=== PATIENT | male | born 1990 | race Caucasian/White ===

== ENCOUNTER 2018-05-29 02:55 | Day surgery (SDC) | payer OTHER ==
[~2018-05-29 02:55] MED LIST: BUPIVACAINE HCL/PF (5 MG/ML) 30 ML VIAL IJ ONE
[2018-05-29 03:17] VITALS: BMI 31.7
[2018-05-29] MEDS ORDERED: SODIUM CHLORIDE 500 ML IV STA (03:24)
[2018-05-29] MEDS ORDERED: ONDANSETRON 4 MG/2 ML VIAL IVPUSH ONE (03:24)
[2018-05-29] MEDS ORDERED: FAMOTIDINE 20 MG/50 ML IVPB 20 MG/50 ML MG IVPB ONE ×2 (03:25→03:38)
[2018-05-29] MEDS ORDERED: MAG HYDROX/AL HYDROX/SIMETH 30 ML UNIT-DOSE CUP PO ONE (03:25)
[2018-05-29] MEDS ORDERED: LIDOCAINE VISCOUS 2% ORAL/TOP 20 ML UNIT-DOSE CUP PO ONE (03:25)
--- NOTE | 2018-05-29 03:28 | PDOC ---
History of Present Illness - General Chief Complaint: Pain, Acute Stated Complaint: ABD PAIN Time Seen by Provider: 05/29/18 03:21 History Source: Patient Exam Limitations: No Limitations - History of Present Illness Travel History: No Initial Comments: 05/29/18 03:26 HISTORY OF PRESENT ILLNESS: 27-year-old male denies medical history presents emergency department for evaluation of diffuse abdominal pain starting approximately 3 hours ago. Patient states without risk friends for dinner and was eating pork and [place] food. Patient states proximal to 5 hours after finishing his dinner he began to have some abdominal pain and began vomiting. Patient describes his abdominal pain is a crampy feeling which she reports is throughout his entire abdomen. He denies any chest pain, shortness of breath, dysuria, hematuria or rectal bleeding. His last bowel movement was approximately noon on 05/28. No recent travel or sick contacts. PAST MEDICAL HISTORY: Denies past medical history SURGICAL HISTORY: Denies ALLERGIES: No known drug allergies REVIEW OF SYSTEMS General/Constitutional: Denies fever or chills. Denies weakness, weight change. HEENT: Denies change in vision. Denies ear pain or discharge. Denies sore throat. Cardiovascular: Denies chest pain or shortness of breath. Respiratory: Denies cough, wheezing, or hemoptysis. Gastrointestinal: see hpi Genitourinary: Denies dysuria, frequency, or change in urination. Musculoskeletal: Denies joint or muscle swelling or pain. Denies neck or back pain. Skin and breasts: Denies rash or easy bruising. Neurologic: Denies headache, vertigo, loss of consciousness, or loss of sensation. Psychiatric: Denies depression or anxiety. Endocrine: Denies increased thirst. Denies abnormal weight change. Hematologic/Lymphatic: Denies anemia, easy bleeding, or history of blood clots. Allergic/Immunologic: Denies hives or skin allergy. Denies latex allergy. PHYSICAL EXAM General Appearance: Well-appearing, appropriately dressed. No apparent distress , no intoxication. HEENT: EOMI, PERRLA, normal ENT inspection, normal voice, TMs normal, pharynx normal. No conjunctival pallor. No photophobia, scleral icterus. Neck: Supple. Trachea midline. No tenderness, rigidity, carotid bruit, stridor , lymphadenopathy, or thyromegaly. Respiratory/Chest: Lungs CTAB. No shortness of breath, chest tenderness, respiratory distress, accessory muscle use. No crackles, rales, rhonchi, stridor , wheezing, dullness Cardiovascular: RRR. S1, S2. No JVD, murmur, bradycardia, tachycardia. Vascular Pulses: Dorsalis-Pedis (R): 2+, Dorsalis-Pedis (L): 2+ Gastrointestinal/Abdominal: Normal bowel sounds. Abdomen soft, non-distended. No tenderness or rebound tenderness. No organomegaly, pulsatile mass, guarding, hernia, hepatomegaly, splenomegaly. Lymphatic: No adenopathy, tenderness. Musculoskeletal/Extremities: Normal inspection. FROM of all extremities, normal capillary refill. Pelvis Stable. No CVA tenderness. No tenderness to extremities, pedal edema, swelling, erythema or deformity. Integumentary: Appropriate color, dry, warm. No cyanosis, erythema, jaundice or rash Neurologic: industrial engineer II-XII intact. Fully oriented, alert. Appropriate mood/affect. Motor strength 5/5. No appreciable EOM palsy, facial droop or sensory deficit. Past History - Past Medical History Allergies/Adverse Reactions: Allergies Allergy/AdvReac Type Severity Reaction Status Date / Time No Known Allergies Allergy Verified 05/29/18 03:20 Home Medications: Ambulatory Orders Ibuprofen 400 mg PO TID 7 Days #21 tablet 05/30/18 COPD: No - Immunization History Immunization Up to Date: Yes - Suicide/Smoking/Psychosocial Hx Smoking History: Current every day smoker Have you smoked in the past 12 months: Yes Information on smoking cessation initiated: Yes Hx Alcohol Use: Yes Drug/Substance Use Hx: No *Physical Exam - Vital Signs Last Vital Signs Temp Pulse Resp BP Pulse Ox 97.7 F 62 18 146/68 98 05/29/18 03:14 05/29/18 03:14 05/29/18 03:14 05/29/18 03:14 05/29/18 03:14 Moderate Sedation - Procedure Monitoring Vital Signs: Procedure Monitoring Vital Signs Temperature 97.7 F 05/29/18 03:14 Pulse Rate 62 05/29/18 03:14 Respiratory Rate 18 05/29/18 03:14 Blood Pressure 146/68 05/29/18 03:14 O2 Sat by Pulse Oximetry (%) 98 05/29/18 03:14 ED Treatment Course - LABORATORY CBC & Chemistry Diagram: 05/30/18 06:45 02/12/19 06:45 Medical Decision Making - Medical Decision Making 05/29/18 03:27 A/P: 27-year-old male abdominal pain for 3 hours Abdominal exam is benign Last PO ~1900hrs 10 Labs, EKG, urinalysis Maalox, viscous lidocaine, Pepcid, normal saline 1 L bolus This patient has benign abdominal exam and will defer imaging at this time. Low threshold image pending laboratory results. Patient is likely to be discharge. 05/29/18 05:15 EKG is reviewed by me and interpreted by Dr. Cintron: This bradycardia with rate of 50. Normal intervals noted. J point elevations present in V2 and V3. CT scan is read by imaging time motion analyst: 1 cm diameter fluid filled appendix with minimal adjacent fat stranding, compatible with acute appendicitis. Multiple appendicoliths including a 1.5 cm stone in the proximal appendix. No abscess, free fluid or free air. Unremarkable pancreas, kidneys and gallbladder. Case discussed with Dr. Guidry. Patient to remain nothing by mouth, IV fluids, blood cultures, antibiotics, admit. Hospitalist contacted for admission. 05/29/18 05:[address] Patel who accepts patient for [facility] admission under Dr. Cornelius. *DC/Admit/Observation/Transfer Diagnosis at time of Disposition: Appendicitis - Discharge Dispostion Disposition: HOME Condition at time of disposition: Stable Decision to Admit order: Yes - Prescriptions - Referrals - Patient Instructions - Post Discharge Activity
[2018-05-29] MEDS ORDERED: LIDOCAINE VISCOUS 2% ORAL/TOP 20 ML UNIT-DOSE CUP ONE (03:37)
[2018-05-29] MEDS ORDERED: MAG HYDROX/AL HYDROX/SIMETH 30 ML UNIT-DOSE CUP ONE (03:38)
[2018-05-29] MEDS ORDERED: ONDANSETRON 4 MG/2 ML VIAL ONE (03:38)
[2018-05-29 03:49] LABS: BASO % 0.3 % (0-2.0); EOS % 0.1 % (0-4.5); HEMATOCRIT 42.3 % (35.4-49); HEMOGLOBIN 14.6 GM/dL (11.7-16.9); LYMPH % 12.4 % (8-40); MCH 30.8 pg (25.7-33.7); MCHC 34.6 g/dl (32.0-35.9); MEAN CELL VOLUME 89.2 fl (80-96); MONO % 2.9 % (3.8-10.2); NEUT % 84.3 % (42.8-82.8); PLATELET COUNT 275 K/MM3 (134-434); RBC 4.74 M/mm3 (4.00-5.60); RDW 13.1 % (11.9-15.9); WHITE BLOOD COUNT 15.2 K/mm3 (4.0-10.0)
[2018-05-29 04:08] LABS: ALBUMIN 4.3 g/dl (3.4-5.0); ALK PHOS 88 U/L (45-117); ANION GAP 7 MMOL/L (8-16); BILIRUBIN,TOTAL 0.6 mg/dL (0.2-1); BLOOD UREA NITROGEN 22 mg/dL (7-18); CALCIUM 8.9 mg/dL (8.5-10.1); CHLORIDE 104 mmol/L (98-107); CO2 28 mmol/L (21-32); CREATININE 1.1 mg/dL (0.55-1.3); GLUCOSE,RANDOM 121 mg/dL (74-106); LIPASE 167 U/L (73-393); POTASSIUM 4.2 mmol/L (3.5-5.1); SGOT/AST 44 U/L (15-37); SGPT/ALT 35 U/L (13-61); SODIUM 139 mmol/L (136-145); TOT PROT 7.4 g/dl (6.4-8.2)
[2018-05-29] MEDS ORDERED: morphine CARPU-JECT 4 MG/1 ML DISP.SYRIN IVPUSH ONE ×2 (04:14→05:31)
[2018-05-29] MEDS ORDERED: morphine SULFATE 4 MG/ML VIAL ONE ×2 (04:17→05:33)
[2018-05-29] MEDS ORDERED: CEFTRIAXONE 1,000 MG in DEXTROSE 5%-WATER - 50 ML IVPB ONE (05:12)
[2018-05-29] MEDS ORDERED: CEFTRIAXONE 1 GM/50 ML BAG ONE (05:16)
[2018-05-29] MEDS ORDERED: SODIUM CHLORIDE 1,000 ML IV SCH (05:30)
[2018-05-29 05:35] LABS: URINE APPEARANCE CLEAR; URINE BILIRUBIN NEGATIVE (<2.0 mg/dL); URINE COLOR COLORLESS; URINE GLUCOSE (UA) NEGATIVE (NEGATIVE); URINE KETONE 1+ (NEGATIVE); URINE LEUK ESTERASE NEGATIVE (NEGATIVE); URINE NITRITE NEGATIVE (NEGATIVE); URINE PROTEIN NEGATIVE (NEGATIVE); URINE UROBILINOGEN NEGATIVE mg/dL (0.2-1.0)
--- NOTE | 2018-05-29 06:38 | PN ---
Teaching Attending Note Name of Resident: Jenn Nathan ATTENDING PHYSICIAN STATEMENT I saw and evaluated the patient. I reviewed the resident's note and discussed the case with the resident. I agree with the resident's findings and plan as documented. SUBJECTIVE: Seen and examined; please see resident note for further historical details. Briefly, this is a 27 y/o male with no PMH on no chronic Rx meds presenting with abdominal pain on the right side not made better or worse with everything, constant with fluctuating intensity, started this monring and worsened when he went out with his friends so he came to ER. Had similar pain 1 month ago but was not seen. Found to have acute appendicitis on prelim CT read. ER made surgery aware; bringing to the medicine team on med surg with surgical consultation. Appreciate expert opinion. 10 sys ROS done and negative aside from HPI PMH, PSH, Social Hx, Family Hx reviewed OBJECTIVE: VS, labs, imaging reviewed NAD, AAO, resting in bed Tender on R-side, negative rovsing's, non-distended, +BS RRR s1/2 no mgr Lungs CTAB w/ sym exp CN2-12 wnl, no fnd Normal mood, appropriate behavior ASSESSMENT AND PLAN: Patient presents with acute uncomplicated appendicitis 1) Acute Appendicitis -Consulting general sgy, defer ultimate management to their service -NPO, IVF, pain control -Levaquin and Flagyl, followup cxs FENA -LR@100 -PRN replete -NPO -As tolerated Full Code
[2018-05-29] MEDS ORDERED: LACTATED RINGERS SOLUTION 1,000 ML/1,000 ML INFUS.BAG IV SCH (07:00)
--- NOTE | 2018-05-29 07:03 | HP ---
<Jenn Nathan - Last Filed: 05/29/18 07:18> CHIEF COMPLAINT: abdominal pain x 1 day PCP: HISTORY OF PRESENT ILLNESS: 27 y/o M w/no significant PMH who presents to the ED c/o abdominal pain over the past day. States that yesterday AM, he developed generalized abdominal pain , which worsened in the evening after he went out with friends to eat [place] food. Soon after, he developed abdominal discomfort, a/w cramping as well as nausea and multiple episodes of NBNB emesis. States that sx were worsened with movement. Without alleviating fx. Denies MABRY, fever, chills, SOB, chest pain or pressure, or changes in urinary or bowel function. Of note, pt experienced similar abdominal pain a month prior, however did not seek evaluation. ER course was notable for: (1) viscous lidocaine (2) flagyl, rocephin (3) mylanta, pepcid, IVF Recent Travel: denies PAST MEDICAL HISTORY: none PAST SURGICAL HISTORY: denies Social History: Smoking: denies Alcohol: socially Drugs: denies Family History: mother passed last yr from colon [place] Allergies No Known Allergies Allergy (Verified 05/29/18 03:20) HOME MEDICATIONS: Home Medications Medication Instructions Recorded NK [No Known Home Medication] 05/29/18 confirmed with patient REVIEW OF SYSTEMS CONSTITUTIONAL: Absent: fever, chills, diaphoresis, generalized weakness, malaise, loss of appetite, weight change HEENT: Absent: rhinorrhea, nasal congestion, throat pain, throat swelling, difficulty swallowing, mouth swelling, ear pain, eye pain, visual changes CARDIOVASCULAR: Absent: chest pain, syncope, palpitations, irregular heart rate, lightheadedness , peripheral edema RESPIRATORY: Absent: cough, shortness of breath, dyspnea with exertion, orthopnea, wheezing, stridor, hemoptysis GASTROINTESTINAL: +abdominal pain, nausea, vomiting Absent: abdominal pain, abdominal distension, nausea, vomiting, diarrhea, constipation, melena, hematochezia GENITOURINARY: Absent: dysuria, frequency, urgency, hesitancy, hematuria, flank pain, genital pain MUSCULOSKELETAL: Absent: myalgia, arthralgia, joint swelling, back pain, neck pain SKIN: Absent: rash, itching, pallor HEMATOLOGIC/IMMUNOLOGIC: Absent: easy bleeding, easy bruising, lymphadenopathy, frequent infections ENDOCRINE: Absent: unexplained weight gain, unexplained weight loss, heat intolerance, cold intolerance NEUROLOGIC: Absent: headache, focal weakness or paresthesias, dizziness, unsteady gait, seizure, mental status changes, bladder or bowel incontinence PSYCHIATRIC: Absent: anxiety, depression, suicidal or homicidal ideation, hallucinations. PHYSICAL EXAMINATION Vital Signs 05/29/18 05/29/18 03:14 05:44 Temperature 97.7 F Pulse Rate 62 Pulse Rate [ 88 Left] Respiratory 18 18 Rate Blood Pressure 146/68 Blood Pressure 131/80 [Left Arm] O2 Sat by Pulse 98 Oximetry (%) GENERAL: Awake, alert, and fully oriented, in no acute distress. Lying down. HEAD: Normal with no signs of trauma. EYES: Pupils equal, round and reactive to light, extraocular movements intact, sclera anicteric, conjunctiva clear. EARS, NOSE, THROAT: Ears normal, nares patent, oropharynx clear without exudates. Dry mucous membranes. NECK: Normal range of motion, supple LUNGS: Breath sounds equal, clear to auscultation bilaterally. No wheezes, and no crackles. No accessory muscle use. HEART: Regular rate and rhythm, normal S1 and S2 without murmur, rub or gallop. ABDOMEN: Soft, +TTP RLQ. Rovsing sign (-). no rebound tenderness. non distended LOWER EXTREMITIES: 2+ pt pulses, warm, well-perfused. No calf tenderness. No peripheral edema. NEUROLOGICAL: Cranial nerves II-XII intact. 5/5 motor strength in UE, LE. PSYCHIATRIC: Cooperative. Good eye contact. SKIN: Warm, dry, normal turgor Laboratory Results 05/29/18 05/29/18 05/29/18 03:34 03:34 05:24 WBC 15.2 H RBC 4.74 Hgb 14.6 Hct 42.3 MCV 89.2 MCH 30.8 MCHC 34.6 RDW 13.1 Plt Count 275 MPV 8.0 Absolute Neuts (auto) 12.8 H Neutrophils % 84.3 H Lymphocytes % 12.4 Monocytes % 2.9 L Eosinophils % 0.1 Basophils % 0.3 Nucleated RBC % 0 Sodium 139 Potassium 4.2 Chloride 104 Carbon Dioxide 28 Anion Gap 7 L BUN 22 H Creatinine 1.1 Creat Clearance w eGFR > 60 Random Glucose 121 H Calcium 8.9 Total Bilirubin 0.6 AST 44 H ALT 35 Alkaline Phosphatase 88 Total Protein 7.4 Albumin 4.3 Lipase 167 Urine Color Colorless Urine Appearance Clear Urine pH 6.0 Ur Specific [place] > 1.060 H Urine Protein Negative Urine Glucose (UA) Negative Urine Ketones 1+ H Urine Blood Negative Urine Nitrite Negative Urine Bilirubin Negative Urine Urobilinogen Negative Ur Leukocyte Esterase Negative Blood Type Antibody Screen CTAP prelim: 1cm diameter fluid filled appendix with minimal adjacent fat stranding consistent with acute appendicitis. multiple appendicoliths including a 1.5cm stone in the proximal appendix. no abscess, free fluid, or air. unremarkable pancreas, kidneys and gallbladder. EKG: +sinus inge HR 50bpm, j point elevations in V2 and V3. Qtc ~390's as per ED staff ASSESSMENT/PLAN: 27 y/o M w/no significant PMH who presents to the ED c/o abdominal pain over the past day. #Acute appendicitis -for OR today, surgery contacted by ED staff (Dr. Guidry) -NPO -T+S, PT/PTT -morphine PRN pain control -c/w levaquin 750mg IVPB qd, flagyl 500mg IVPB qd . Qtc confirmed with ED staff -f/u blood, ucx -IVF #F/E/N IV LR 100 cc/hr continue to follow lytes NPO #PPX SCD's as to OR today #Dispo admit to med-surg Visit type - Emergency Visit Emergency Visit: Yes ED Registration Date: 05/29/18 Care time: The patient presented to the Emergency Department on the above date and was hospitalized for further evaluation of their emergent condition. - New Patient This patient is new to me today: Yes Date on this admission: 05/29/18 - Critical Care Critical Care patient: No <Andrew Cornelius - Last Filed: 06/26/18 20:52> Seen and examined; agree with the above aside from what is supplemented by myself in my own documentation. Reviewed all weber parts of history and exam with resident team and verified independently.
[2018-05-29] MEDS ORDERED: MORPHINE SULFATE 2 MG/ML VIAL ONE (07:40)
[2018-05-29] MEDS ORDERED: MIDAZOLAM HCL 2 MG/2 ML SINGLE DOSE VIAL ONE ×2 (07:48→13:19)
[2018-05-29] MEDS ORDERED: SUCCINYLCHOLINE CHLORIDE 200 MG/10 ML VIAL ONE (07:48)
[2018-05-29] MEDS ORDERED: PROPOFOL 20 ML ONE ×4 (07:48→13:21)
[2018-05-29] MEDS ORDERED: ROCURONIUM BROMIDE 50 MG/5 ML VIAL ONE (07:49)
[2018-05-29] MEDS ORDERED: MORPHINE SULFATE 2 MG/ML VIAL IVPUSH PRN ×2 (08:00→18:14)
[2018-05-29] MEDS ORDERED: BUPIVACAINE HCL/PF 0.5% (5MG/ML) 10 ML VIAL ONE (08:20)
--- NOTE | 2018-05-29 08:53 | CONSULT ---
- Consultation REQUESTING PROVIDER: Rc SAUNDERS CONSULT REQUEST: We have been asked to surgically evaluate this patient for abdominal pain PCP:Liza Porter HISTORY OF PRESENT ILLNESS: 27 y/o o/w healthy male presented w/> 6 hours of generalized to RLQ abdominal pain; sharp in nature w/o radiation; no other GI/ c/o; worse w/movement andsharp in quality; NOC. He came to the ER for evaluation. PMHx: none PSHx: none Home Medications Medication Instructions Recorded NK [No Known Home Medication] 05/29/18 Allergies Allergy/AdvReac Type Severity Reaction Status Date / Time No Known Allergies Allergy Verified 05/29/18 03:20 REVIEW OF SYSTEMS: CONSTITUTIONAL: Absent: fever, chills, diaphoresis, generalized weakness, malaise, loss of appetite, weight change CARDIOVASCULAR: Absent: chest pain, syncope, palpitations, irregular heart rate, lightheadedness , peripheral edema RESPIRATORY: Absent: cough, shortness of breath, dyspnea with exertion, wheezing, stridor, hemoptysis GASTROINTESTINAL: Absent: abdominal pain, abdominal distension, nausea, vomiting, diarrhea, constipation, melena, hematochezia GENITOURINARY: Absent: dysuria, frequency, urgency, hesitancy, hematuria, flank pain, genital pain MUSCULOSKELETAL: Absent: myalgia, arthralgia, joint swelling, back pain, neck pain SKIN: Absent: rash, itching, pallor HEMATOLOGIC/IMMUNOLOGIC: Absent: easy bleeding, easy bruising, lymphadenopathy NEUROLOGIC: Absent: headache, focal weakness, paresthesias, dizziness, unsteady gait, seizure, mental status changes, bladder or bowel incontinence PSYCHIATRIC: Absent: anxiety, depression, suicidal or homicidal ideation, hallucinations. PHYSICAL EXAM: GENERAL: Awake, alert, and fully oriented, in no acute distress. HEAD: Normal with no signs of trauma. EYES: PERRL, sclera anicteric, conjunctiva clear. NECK: Normal ROM, supple without lymphadenopathy, JVD, or masses. ABDOMEN: Soft, tender RLQ, not distended, normoactive bowel sounds,voluntary guarding, positive rebound, no masses. No organomegaly.No hernias; Rovsing/ psoas and obturator signs are present. MUSCULOSKELETAL: Normal ROM at all joints. No bony deformities or tenderness. No CVA tenderness. UPPER EXTREMITIES: 2+ pulses, warm, well-perfused. No cyanosis. Cap refill <2 seconds. No peripheral edema. LOWER EXTREMITIES: 2+ pulses, warm, well-perfused. No calf tenderness. No peripheral edema. NEUROLOGICAL: Normal speech, gait not observed. PSYCH: Cooperative. Good eye contact. Appropriate mood and affect. SKIN: Warm, dry, normal turgor, no rashes or lesions noted. Vital Signs Temperature 98.7 F 05/29/18 08:00 Pulse Rate 53 L 05/29/18 08:00 Respiratory Rate 18 05/29/18 08:00 Blood Pressure 146/76 05/29/18 08:00 O2 Sat by Pulse Oximetry (%) 98 05/29/18 08:00 Lab Results WBC 15.2 K/mm3 (4.0-10.0) H 05/29/18 03:34 RBC 4.74 M/mm3 (4.00-5.60) 05/29/18 03:34 Hgb 14.6 GM/dL (11.7-16.9) 05/29/18 03:34 Hct 42.3 % (35.4-49) 05/29/18 03:34 MCV 89.2 fl (80-96) 05/29/18 03:34 MCHC 34.6 g/dl (32.0-35.9) 05/29/18 03:34 RDW 13.1 % (11.9-15.9) 05/29/18 03:34 Plt Count 275 K/MM3 (134-434) 05/29/18 03:34 Sodium 139 mmol/L (136-145) 05/29/18 03:34 Potassium 4.2 mmol/L (3.5-5.1) 05/29/18 03:34 Chloride 104 mmol/L (98-107) 05/29/18 03:34 Carbon Dioxide 28 mmol/L (21-32) 05/29/18 03:34 Anion Gap 7 MMOL/L (8-16) L 05/29/18 03:34 BUN 22 mg/dL (7-18) H 05/29/18 03:34 Creatinine 1.1 mg/dL (0.55-1.3) 05/29/18 03:34 Random Glucose 121 mg/dL (74-106) H 05/29/18 03:34 Calcium 8.9 mg/dL (8.5-10.1) 05/29/18 03:34 Blood Type O POSITIVE 05/29/18 05:30 Antibody Screen Negative 05/29/18 05:30 CT a/p c/w acute appendicitis IMP: acute appendicitis PLAN: lap appendectomy possible open; r/b/t/a's d/w the patient and informed consent obtained. Jose Luis Guidry MD FACS
[2018-05-29] MEDS ORDERED: DESFLURANE GAS 240 ML BOTTLE IH ONE (09:27)
[2018-05-29] MEDS ORDERED: ONDANSETRON 4 MG/2 ML VIAL IVPUSH PRN ×2 (09:32→18:14)
[2018-05-29] MEDS ORDERED: BUPIVACAINE HCL/PF (5 MG/ML) 30 ML VIAL IJ ONE (10:15)
--- NOTE | 2018-05-29 10:25 | OP ---
Operative Note - Note: Operative Date: 05/29/18 Pre-Operative Diagnosis: acute appendicitis Operation: laparoscopic appendectomy Findings: acute appendicitis Post-Operative Diagnosis: Same as Pre-op Surgeon: Jose Luis Guidry Chief Airline Radio Operator: Nanci Dockery Anesthesiologist/SUPERINTENDENT INSTITUTION: [facility] Anesthesia: General Specimens Removed: appendix Estimated Blood Loss (mls): 15
[2018-05-29] MEDS ORDERED: oxyCODONE HCL 5 MG TABLET PO PRN ×2 (10:32)
[2018-05-29] MEDS ORDERED: ACETAMINOPHEN 325 MG TABLET (FP) PO PRN (10:33)
--- NOTE | 2018-05-29 12:39 | SURG ---
Surgery Configurator Note Configurator: Nanci Dockery PA-C Date of Service: 05/29/18 Diagnosis: acute appendicitis Procedure: laparoscopic appendectomy I was present for the entirety of the operative procedure. For further detail, please refer to operative report. Visit type - Case Type Case Type: ED Admission - Emergency Emergency Visit: Yes ED Registration Date: 05/29/18 Care time: The patient presented to the Emergency Department on the above date and was hospitalized for further evaluation of their emergent condition. - New patient This patient is new to me today: Yes Date on this admission: 05/29/18
--- NOTE | 2018-05-29 14:38 | EKG ---
Test Reason : Blood Pressure : / mmHG Vent. Rate : 048 BPM Atrial Rate : 048 BPM P-R Int : 132 ms QRS Dur : 084 ms QT Int : 456 ms P-R-T Axes : 008 037 023 degrees QTc Int : 407 ms SINUS BRADYCARDIA MINIMAL VOLTAGE CRITERIA FOR LVH, MAY BE NORMAL VARIANT EARLY REPOLARIZATION BORDERLINE ECG NO PREVIOUS ECGS AVAILABLE Confirmed by AVINASH NUNO, CARLOZ ([id number]) on 05/29/2018 2:38:16 PM Referred By: Confirmed By:CARLOZ DA SILVA MD
--- NOTE | 2018-05-29 15:31 | PN ---
Physical Exam: SUBJECTIVE: Patient seen and examined at bed side this AM pt presented with one day h/o abdominal pain med epigastric 9/10 continuos not improving with pain meds was found to have acute appendicitis on CT abdomen for OR today by Dr Guidry received ABx in ED Zofran for Nausea and IV fluids OBJECTIVE: Vital Signs Period Temp Pulse Resp BP Sys/Bishop Pulse Ox Last 24 Hr 97.7 F-98.7 F 53-88 16-18 120-164/62-80 94-100 GENERAL: AAOx3 in AND laying on right side HEAD: NC/AT NECK: Normal range of motion, supple LUNGS: Breath sounds equal, clear to auscultation bilaterally. No wheezes, and no crackles. No accessory muscle use. HEART: Regular rate and rhythm, normal S1 and S2 without murmur, rub or gallop. ABDOMEN: Soft, +TTP RLQ. Rovsing sign (-). no rebound tenderness. non distended LOWER EXTREMITIES: 2+ pt pulses, warm, well-perfused. No calf tenderness. No peripheral edema. NEUROLOGICAL: Cranial nerves II-XII intact. 5/5 motor strength in UE, LE. PSYCHIATRIC: Cooperative. Good eye contact. SKIN: Warm, dry, normal turgor Laboratory Results - last 24 hr 05/29/18 05/29/18 05/29/18 03:34 03:34 05:24 WBC 15.2 H RBC 4.74 Hgb 14.6 Hct 42.3 MCV 89.2 MCH 30.8 MCHC 34.6 RDW 13.1 Plt Count 275 MPV 8.0 Absolute Neuts (auto) 12.8 H Neutrophils % 84.3 H Lymphocytes % 12.4 Monocytes % 2.9 L Eosinophils % 0.1 Basophils % 0.3 Nucleated RBC % 0 Sodium 139 Potassium 4.2 Chloride 104 Carbon Dioxide 28 Anion Gap 7 L BUN 22 H Creatinine 1.1 Creat Clearance w eGFR > 60 Random Glucose 121 H Calcium 8.9 Total Bilirubin 0.6 AST 44 H ALT 35 Alkaline Phosphatase 88 Total Protein 7.4 Albumin 4.3 Lipase 167 Urine Color Colorless Urine Appearance Clear Urine pH 6.0 Ur Specific [place] > 1.060 H Urine Protein Negative Urine Glucose (UA) Negative Urine Ketones 1+ H Urine Blood Negative Urine Nitrite Negative Urine Bilirubin Negative Urine Urobilinogen Negative Ur Leukocyte Esterase Negative Blood Type Antibody Screen 05/29/18 05:30 WBC RBC Hgb Hct MCV MCH MCHC RDW Plt Count MPV Absolute Neuts (auto) Neutrophils % Lymphocytes % Monocytes % Eosinophils % Basophils % Nucleated RBC % Sodium Potassium Chloride Carbon Dioxide Anion Gap BUN Creatinine Creat Clearance w eGFR Random Glucose Calcium Total Bilirubin AST ALT Alkaline Phosphatase Total Protein Albumin Lipase Urine Color Urine Appearance Urine pH Ur Specific [place] Urine Protein Urine Glucose (UA) Urine Ketones Urine Blood Urine Nitrite Urine Bilirubin Urine Urobilinogen Ur Leukocyte Esterase Blood Type O POSITIVE Antibody Screen Negative Active Medications Generic Name Dose Route Start Last Admin Trade Name Freq PRN Reason Stop Dose Admin Acetaminophen 650 mg 05/29/18 10:33 Tylenol - PO Q6H PRN PAIN OR FEVER Fentanyl 50 mcg 05/29/18 09:32 Sublimaze Injection - IVPUSH [id number] PRN PAIN-PACU ORDER X 4 DOSES ONLY Metronidazole 500 mg in 100 mls @ 100 mls/hr 05/29/18 13:00 Flagyl 500mg Premixed Ivpb - IVPB Q8H-IV ZEENAT Levofloxacin 750 mg in 150 mls @ 100 mls/hr 05/30/18 10:00 Levaquin 750 Mg Premixed Ivpb - IVPB DAILY ZEENAT Protocol Lactated Ringer's 1,000 ml in 1,000 mls @ 100 mls/hr 05/29/18 07:00 05/29/18 07:59 Lactated Ringers Solution IV 100 mls/hr ASDIR ZEENAT Administration Morphine Sulfate 2 mg 05/29/18 08:00 05/29/18 08:00 Morphine Sulfate IVPUSH 2 mg Q6H PRN Administration PAIN LEVEL 7 - 10 Ondansetron HCl 4 mg 05/29/18 09:32 Zofran Injection IVPUSH Q6H PRN NAUSEA AND/OR VOMITING Oxycodone HCl 5 mg 05/29/18 10:32 Roxicodone - PO Q6H PRN PAIN LEVEL 1-5 Oxycodone HCl 10 mg 05/29/18 10:32 Roxicodone - PO Q6H PRN PAIN LEVEL 6-10 CBC, BMP 05/29/18 03:34 05/29/18 03:34 CTAP prelim: 1cm diameter fluid filled appendix with minimal adjacent fat stranding consistent with acute appendicitis. multiple appendicoliths including a 1.5cm stone in the proximal appendix. no abscess, free fluid, or air. unremarkable pancreas, kidneys and gallbladder. EKG: +sinus inge HR 50bpm, j point elevations in V2 and V3. Qtc ~390's as per ED staff ASSESSMENT/PLAN: 27 y/o M w/no significant PMH who presents to the ED c/o abdominal pain over the past day. #Acute appendicitis * for OR today, surgery contacted by ED staff (Dr. Guidry) * NPO * T+S, PT/PTT * morphine PRN pain control * c/w levaquin 750mg IVPB qd, flagyl 500mg IVPB qd . Qtc confirmed with ED staff * f/u blood, ucx * IVF RL @ 100 CC/hr #F/E/N * IV LR 100 cc/hr * monitor lytes NPO #PPX * SCD's as to OR today #Dispo * admit to med-surg * Possible DC in AM * # Post op pt had operation today with o complication and started on clear liquid will advance to regular diet in AM Nabeel Ruelas PGy2 case discussed with Dr Mobley Visit type - Emergency Visit Emergency Visit: Yes Care time: The patient presented to the Emergency Department on the above date and was hospitalized for further evaluation of their emergent condition. - New Patient This patient is new to me today: Yes Date on this admission: 05/29/18 - Critical Care Critical Care patient: No
--- NOTE | 2018-05-29 16:34 | PN ---
Teaching Attending Note Name of Resident: Nabeel Ruelas ATTENDING PHYSICIAN STATEMENT I saw and evaluated the patient. I reviewed the resident's note and discussed the case with the resident. I agree with the resident's findings and plan as documented. SUBJECTIVE:seen in recovery room No fever or chills, minimal abd pain. tolerated liquid diet. No N/V. OBJECTIVE: NAD. MMM Cv : RRR, NO MRG Lungs: CTAB Abd: soft, ND, bandages over laparoscopic wounds Ext : no edema ASSESSMENT AND PLAN: 27 y/o man with no PMH came in with abd painand was found to have acute ppendicitis 1- acute appendicitis: s/p Appendectomy. no abscess or perforation dc Abx. dc morphine. cont oxy IVF liquid diet . advance in am dc home in am
[2018-05-29] MEDS: LACTATED RINGERS SOLUTION 1,000 ML/1,000 ML INFUS.BAG IV SCH (20:57)
[2018-05-29] MEDS: HEPARIN NA (PORCINE) 5,000 UNITS/ML 1ML VIAL SQ SCH (21:13)
[2018-05-29 21:28] LABS: BASO % 0.3 % (0-2.0); EOS % 0.2 % (0-4.5); HEMATOCRIT 38.5 % (35.4-49); HEMOGLOBIN 13.5 GM/dL (11.7-16.9); LYMPH % 30.6 % (8-40); MCH 31.4 pg (25.7-33.7); MEAN CELL VOLUME 89.8 fl (80-96); MEAN PLT VOLUME 8.2 fl (7.5-11.1); MONO % 5.6 % (3.8-10.2); NEUT % 63.3 % (42.8-82.8); PLATELET COUNT 244 K/MM3 (134-434); RBC 4.29 M/mm3 (4.00-5.60); RDW 13.1 % (11.9-15.9); WHITE BLOOD COUNT 10.2 K/mm3 (4.0-10.0)
[2018-05-29 21:53] LABS: INR 1.09 (0.83-1.09); PROTHROMBIN TIME (PATIENT) 12.9 SEC (9.7-13.0)
[2018-05-29 21:56] LABS: ACTIVATED PTT 26.1 SECONDS (25.2-36.5); ANION GAP 8 MMOL/L (8-16); BLOOD UREA NITROGEN 12 mg/dL (7-18); CALCIUM 8.3 mg/dL (8.5-10.1); CHLORIDE 105 mmol/L (98-107); CO2 28 mmol/L (21-32); CREATININE 1.2 mg/dL (0.55-1.3); GLUCOSE,RANDOM 107 mg/dL (74-106); PHOSPHOROUS 2.7 mg/dL (2.5-4.9); POTASSIUM 3.3 mmol/L (3.5-5.1); SODIUM 141 mmol/L (136-145)
[2018-05-30] MEDS: HEPARIN NA (PORCINE) 5,000 UNITS/ML 1ML VIAL SQ SCH (06:26)
[2018-05-30] MEDS: LACTATED RINGERS SOLUTION 1,000 ML/1,000 ML INFUS.BAG IV SCH (06:37)
[2018-05-30 07:34] LABS: BASO % 0.3 % (0-2.0); EOS % 0.6 % (0-4.5); HEMATOCRIT 38.8 % (35.4-49); HEMOGLOBIN 13.4 GM/dL (11.7-16.9); LYMPH % 33.9 % (8-40); MCH 30.7 pg (25.7-33.7); MCHC 34.6 g/dl (32.0-35.9); MEAN CELL VOLUME 88.6 fl (80-96); MEAN PLT VOLUME 7.7 fl (7.5-11.1); MONO % 6.3 % (3.8-10.2); NEUT % 58.9 % (42.8-82.8); PLATELET COUNT 248 K/MM3 (134-434); RBC 4.38 M/mm3 (4.00-5.60); RDW 13.1 % (11.9-15.9)
[2018-05-30 09:02] LABS: ALBUMIN 3.4 g/dl (3.4-5.0); ALK PHOS 67 U/L (45-117); ANION GAP 6 MMOL/L (8-16); BILIRUBIN,TOTAL 1.2 mg/dL (0.2-1); CALCIUM 8.6 mg/dL (8.5-10.1); CHLORIDE 105 mmol/L (98-107); CO2 29 mmol/L (21-32); GLUCOSE,RANDOM 87 mg/dL (74-106); MAGNESIUM 2.5 mg/dL (1.8-2.4); PHOSPHOROUS 3.3 mg/dL (2.5-4.9); POTASSIUM 3.8 mmol/L (3.5-5.1); SGPT/ALT 27 U/L (13-61); SODIUM 140 mmol/L (136-145)
[2018-05-30 09:07] VITALS: BP 130/75; PULSE 78; TEMP 98.3
--- NOTE | 2018-05-30 09:24 | PN ---
Progress Note (short form) - Note Progress Note: POD 1, s/p laparoscopic appendectomy Pt seen and examined. States he is feeling well this morning. Pain is controlled. Has been oob to restroom. Tolerating clears. Denies cp/sob, n/v/d. Vital Signs Temp 98.3 F 05/30/18 09:06 Pulse 78 05/30/18 09:06 Resp 20 05/30/18 09:06 BP 130/75 05/30/18 09:06 Pulse Ox 98 05/29/18 17:01 Intake & Output 05/29/18 05/29/18 05/30/18 11:59 23:59 11:59 Intake Total 1600 400 800 Output Total 315 1000 2 Balance 1285 -600 798 Weight 185 lb Intake: IV 1600 400 800 LACTATED RINGERS SOLUTION 400 800 1,000 ml In 1,000 ml @ 100 mls/hr IV ASDIR ZEENAT Rx#:[id number] Output: Urine 1000 2 Void 2 Estimated Blood Loss 15 Other 300 Other: Voiding Method Toilet Urinal Height 5 ft 4 in Body Mass Index (BMI) 31.7 Weight Measurement Method Est/Stated by Patient CBC, BMP 05/30/18 06:45 05/30/18 06:45 Gen: awake, alert, nad Resp: unlabored on RA Abdo: soft, minimally ttp at incision sites, dressings c/d/i, no rebound, no guarding. +bowel sounds A/P: 27 y/o M w/ no significant PMHx a/w abdominal pain, found to have acute appendicitis, now POD1, s/p lap appy. Afebrile, VSS Leukocytosis resolved -Advance diet -May d/c today from General Surgery standpoint -D/c instructions reviewed with pt, should f/u in 1 week in the office with Dr Guidry d/w attending Dr Guidry
[2018-05-30 13:14] LABS: BLOOD UREA NITROGEN 10 mg/dL (7-18); SGOT/AST 36 U/L (15-37)
--- NOTE | 2018-05-30 14:40 | DS ---
Physical Exam: SUBJECTIVE: Patient seen and examined OBJECTIVE: Vital Signs Period Temp Pulse Resp BP Sys/Bishop Pulse Ox Last 24 Hr 98.3 F-99.6 F 66-82 16-20 90-140/62-80 95-98 PHYSICAL EXAM GENERAL: The patient is awake, alert, and fully oriented, in no acute distress. HEAD: Normal with no signs of trauma. EYES: PERRL, extraocular movements intact, sclera anicteric, conjunctiva clear. ENT: Ears normal, nares patent, oropharynx clear without exudates, moist mucous membranes. NECK: Trachea midline, full range of motion, supple. LUNGS: Breath sounds equal, clear to auscultation bilaterally, no wheezes, no crackles, no accessory muscle use. HEART: Regular rate and rhythm, S1, S2 without murmur, rub or gallop. ABDOMEN: Soft, nontender, nondistended, normoactive bowel sounds, no guarding, no rebound, no hepatosplenomegaly, no masses. EXTREMITIES: 2+ pulses, warm, well-perfused, no edema. NEUROLOGICAL: Cranial nerves II through XII grossly intact. Normal speech, gait not observed. PSYCH: Normal mood, normal affect. SKIN: Warm, dry, normal turgor, no rashes or lesions noted. LABS Laboratory Results - last 24 hr 05/29/18 05/29/18 05/29/18 21:00 21:00 21:00 WBC 10.2 H RBC 4.29 Hgb 13.5 Hct 38.5 MCV 89.8 MCH 31.4 MCHC 35.0 RDW 13.1 Plt Count 244 MPV 8.2 Absolute Neuts (auto) 6.4 Neutrophils % 63.3 D Lymphocytes % 30.6 D Monocytes % 5.6 D Eosinophils % 0.2 D Basophils % 0.3 Nucleated RBC % 0 PT with INR 12.90 INR 1.09 PTT (Actin FS) 26.1 Sodium Potassium Chloride Carbon Dioxide Anion Gap BUN Creatinine Creat Clearance w eGFR Random Glucose Calcium Phosphorus Magnesium Total Bilirubin AST ALT Alkaline Phosphatase Total Protein Albumin Blood Type O POSITIVE Antibody Screen Negative 05/29/18 05/30/18 05/30/18 21:00 06:45 06:45 WBC 8.0 RBC 4.38 Hgb 13.4 Hct 38.8 MCV 88.6 MCH 30.7 MCHC 34.6 RDW 13.1 Plt Count 248 MPV 7.7 Absolute Neuts (auto) 4.7 Neutrophils % 58.9 Lymphocytes % 33.9 Monocytes % 6.3 Eosinophils % 0.6 D Basophils % 0.3 Nucleated RBC % 0 PT with INR INR PTT (Actin FS) Sodium 141 140 Potassium 3.3 L 3.8 Chloride 105 105 Carbon Dioxide 28 29 Anion Gap 8 6 L BUN 12 10 Creatinine 1.2 1.0 Creat Clearance w eGFR > 60 > 60 Random Glucose 107 H 87 Calcium 8.3 L 8.6 Phosphorus 2.7 3.3 Magnesium 2.0 2.5 H Total Bilirubin 1.2 H AST 36 ALT 27 Alkaline Phosphatase 67 Total Protein 6.0 L Albumin 3.4 Blood Type Antibody Screen imaging: ab/pelvis CT scan Impression: Findings are consistent with acute appendicitis. No evidence of drainable abscess. No free air noted. Other findings as above. Clinical correlation advised. HOSPITAL COURSE: Date of Admission:05/29/18 27 y/o male with no PMH presented to the ED with abdominal pain after having philipino foods with friends and patient had associated episodes of nausea and vomiting. When he came to the ED he was afebrile however he did have a WBC count of 15.2. Ab/pelvis CT scan showed uncomplicated acute appendicitis. Surgery was consulted from the ED- patient was started on ceftriaxone/flagyl and started on pain meds. Patient underwent a lap appendectomy with no pre/stefanie - or post-operative complications. Patient was discharged home POD #1 with ibuprofen for pain and with strict follow up to see the surgeon within one week and he was also referred to a primary care physician to see within the week of discharge as well. Patient was vitally stable for discharge. Date of Discharge: 05/30/18 Minutes to complete discharge: 39 Discharge Summary Reason For Visit: APPENDICITIS Condition: Stable - Instructions Diet, Activity, Other Instructions: Dr. Guidry Discharge Instructions Post Operative Instructions Physical activity Resume your normal everyday activity as tolerated no heavy lifting or exercise until seen by your surgeon. You may walk unlimited amounts of and climb stairs. You may resume driving the car when you feel safe and comfortable behind the wheel and are no longer taking narcotic pain medications. Wound care If you have a bandage, leave it on, and keep dry for 48 hours. After that time discard the outer bandage. If there are tapes on the skin under the outer bandage, leave them in place. They will peel off in the next 7 to 10 days. Do Not peel them off. You also have a liquid glue beneath the steri-strips. It may begin to flake off over the next few days, do not peel it, it will come off on its own. You may shower 2 days after surgery, after removing the outer bandage. If there are tapes present on the skin, they can get wet. When showering, allow soap and water to run over the incision, do not scrub the incision. Pat dry well after showering. Diet There are no dietary restrictions. Eat healthy, high-fiber foods. Drink 6 to 8 glasses of liquid each day. This will assist in keeping your bowels are regular. Pain management You may take Tylenol (Acetaminophen) or Ibuprofen (for example, Motrin, Advil etc) for mild pain. Any pain prescription medication ordered should be taken as prescribed for moderate to severe pain. Please take as directed. If the prescribed dosage is not controlling your pain, please contact Dr Guidry. Do not drive, drink alcohol or operate heavy machinery while taking narcotic pain medications. Do not take additional Acetaminophen with your narcotic pain medication if it contains Acetaminophen. You may Acetaminophen and Ibuprofen alternating. For example, you can take Acetaminophen at 10AM followed by Ibuprofen at 1pm, and Acetaminophen at 4pm. Take Ibuprofen with food, Acetaminophen may be taken on an empty stomach. Do not exceed 3g (3000mg) of Acetaminophen in 24 hours. Do not exceed 2400mg Ibuprofen in 24 hours. We are prescribing you Ibuprofen 400mg which can be taken every 8 hours with food when needed. ISTOP: [id number] Call Dr. Guidry for any of the following: Severe pain not relieved by medication Fever of 101 or higher Excessive bleeding or drainage on dressing Inability to urinate If you experience any chest pain or shortness of breath, nausea, vomiting or abdominal pain please return to the emergency room immediately. Call the office at [phone] for a post operative appointment in 7 - 10 days. In addition to seeing Dr. Guidry within one week, we are referring you to [facility] [place] to see a primary care physician within one week. Referrals: Vishnu Mccracken MD [Staff Physician] - 1 Week Jose Luis Guidry MD [Staff Physician] - 1 Week Disposition: HOME - Home Medications Comprehensive Discharge Medication List: Ambulatory Orders Ibuprofen 400 mg PO TID 7 Days #21 tablet 05/30/18 Problem List - Problems (1) Appendicitis Code(s): K37 - UNSPECIFIED APPENDICITIS Qualifiers: Appendicitis type: acute appendicitis Appendicitis gangrene presence: unspecified whether gangrene present Appendicitis perforation presence: without perforation Appendicitis abscess presence: without abscess This patient is new to me today: Yes Date on this admission: 05/30/18 Emergency Visit: Yes Care time: The patient presented to the Emergency Department on the above date and was hospitalized for further evaluation of their emergent condition. Critical Care patient: No - Discharge Referral Referred to [facility] Med P.C.: No
--- NOTE | 2018-05-30 15:16 | PN ---
Teaching Attending Note Name of Resident: Kaelyn Ulloa ATTENDING PHYSICIAN STATEMENT I saw and evaluated the patient. I reviewed the resident's note and discussed the case with the resident. I agree with the resident's findings and plan as documented. SUBJECTIVE:seen at 9 am No fever or chills. tolerated regular diet OBJECTIVE: NAD. MMM Cv : RRR, NO MRG Lungs: CTAB Abd: soft, ND, bandages over laparoscopic wounds , minimally tender in RLQ . + BS Ext : no edema ASSESSMENT AND PLAN: 27 y/o man with no PMH came in with abd pain and was found to have acute ppendicitis 1- acute appendicitis: s/p Appendectomy. no abscess or perforation f/u with sx ibuprofen for pain no heavy lifting dc home
--- NOTE | 2018-05-31 10:49 | OP ---
DATE OF OPERATION: 05/29/2018 PREOPERATIVE DIAGNOSIS: Acute appendicitis. POSTOPERATIVE DIAGNOSIS: Acute appendicitis. PROCEDURE: Laparoscopic appendectomy. SURGEON: Jose Luis Guidry MD [facility] DIRECTOR: Nanci Dockery PA-C ANESTHESIA: General. OPERATIVE FINDINGS: Acute appendicitis without evidence of perforation, phlegmon, or abscess formation. The rest of the findings were unremarkable. DESCRIPTION OF PROCEDURE: The patient was placed on the operating table in the supine position, and after the induction of general anesthesia, the patients abdomen was prepped with ChloraPrep and draped in sterile fashion. A time-out was taken , and pneumoperitoneum established above the umbilicus using a Veress needle to an intraabdominal pressure of 15 mmHg. Subsequently, a 5-mm suprapubic port was placed, and the previously noted findings were observed. An additional 12-mm suprapubic port and 5-mm left lower quadrant port were placed, and the appendix identified at the confluence of the 3 taeniae of the right colon onto the cecum. The appendix was grasped, and the mesoappendix serially divided using the LigaSure device. Once the mesoappendix was cleared to the base of the appendix, a 45-mm purple-load Endo TEJ was fired across the base of the appendix. Hemostasis was verified, and then, the appendix was placed in an EndoCatch and brought out through the suprapubic port. Pneumoperitoneum was reestablished without evidence of bleeding, and then, all ports were removed under laparoscopic vision without evidence of bleeding from the port sites. All port sites were infiltrated with 0.5% Marcaine, and the defect in the fascia at the suprapubic port site was closed with a single 0 Vicryl figure-of-8 suture. The skin incisions were closed with 4-0 Monocryl followed by Steri-Strips and Band- Aid dressings. The procedure was terminated at this point, and the patient aroused from general anesthesia and transferred to the post-anesthesia care unit in stable condition, awake and alert. ESTIMATED BLOOD LOSS: 15 mL. REPLACEMENTS: Crystalloid. DRAINS: None. SPECIMENS: Appendix to Pathology. I, Jose Luis Guidry, was physically present in the operating room from the time the patient was placed on the operating table until he was transferred to the post-anesthesia care unit in my accompaniment. Jose Luis Guidry MD /[id number] MTDAntonia
--- NOTE | 2018-05-31 16:08 | PATH ---
Surgical Pathology Report Patient Name: GABBI CLEMENTS Med. Rec. #: [id number] /Age/Gender: 1990 (Age: 27) / M Account: <[id number]> Location: EMERGENCY ROOM Taken: 05/29/2018 Received: 05/29/2018 Reported: 05/31/2018 Physicians: Jose Luis Guidry MD PHYSICIAN EMERGENCY DEPT Specimen(s) Received APPENDIX Clinical History Appendicitis Final Diagnosis APPENDIX, APPENDECTOMY: ACUTE APPENDICITIS AND PERIAPPENDICITIS. Electronically Signed Nanci Kwong M.D. Gross Description Received in formalin, labeled "appendix," is a 7.2 cm. in length vermiform appendix with a stapled margin of resection and abundant attached fat. The serosa is harry-pink and smooth. Sectioning reveals red blood and fecal material within the lumen. The wall of the appendix averages 0.1 cm. in thickness. Ergonomics Technician sections are submitted in one cassette. /05/29/2018 saudi05/29/2018
== END 2018-05-30 10:50 | disposition home or self-care (01) ==
LOC: JER 02:55 → UNDOADMIN 05:44 → JERBED 05:44 → JASUSAT 16:06 → J5S 18:37 → JASUSAT 05-30 10:50
PROVIDERS: ATTEND Physician Assistant Surgical
PROC: 0DTJ4ZZ Resection of Appendix, Percutaneous Endoscopic Approach (ICD-10-PCS; principal; 2018-05-29 10:00)
DX: K35.80 Unspecified acute appendicitis (principal)
CPT/HCPCS: 36415; 71046-TC-FY; 74177-TC; 80048; 80053; 81003; 83690; 83735; 84100; 85025; 85610; 85730; 86850; 86900; 86901; 87040; 87086; 88304-TC; 93005; 93010; 94010; 94760; 99285-25; J7030